=== PATIENT | female | born 1940 | race Caucasian/White ===

== ENCOUNTER → 2024-10-31 | Outpatient (CLI) | payer OTHER ==
[~2024-10-31] MED LIST: BISA5EC PO; EUTHYROX125 MC1 PO; EZETIMIBE10 M6 PO; LISINOPRIL-HCT1 EACH PO; MIRALAX17 GM PO; NARCAN4 M1 INH; OXYC5 PO; Simvastatin80 MG PO
[2024-10-31 13:02] LABS: Creatinine, Urine Random 31.1 mg/dL (27.00-270.00)
[2024-10-31 13:05] LABS: Microalb/Creat Ratio UR, Rand 27.299 mg/g (0.000-30.000); Microalbumin, Random Urine 8.49 mg/L (0.000-20.000)
== END | disposition home or self-care (01) ==
LOC: LAB SHORT 06:15 → LAB 06:15
PROVIDERS: Physician Assistant Medical
DX: N18.32 Chronic kidney disease, stage 3b (principal)
CPT/HCPCS: 82043; 82570

== ENCOUNTER 2024-12-19 22:07 | Emergency (ER) | payer OTHER ==
[~2024-12-19] VITALS: Ht 157.5 cm; Wt 54.4 kg
[2024-12-19 22:13] VITALS: BP 184/57
[2024-12-19] MEDS ORDERED: Methocarbamol 500 MG Tab PO ONE (23:35)
[2024-12-19] MEDS ORDERED: Voltaren100 GM TOP (23:40)
[2024-12-19] MEDS ORDERED: Robaxin750 MG PO (23:40)
== END 2024-12-19 23:53 | disposition home or self-care (01) ==
LOC: ER 22:07
DX: S39.012A Strain of muscle, fascia and tendon of lower back, initial encounter (principal); E78.5 Hyperlipidemia, unspecified; E03.9 Hypothyroidism, unspecified; I10 Essential (primary) hypertension; Z79.890 Hormone replacement therapy; Z79.02 Long term (current) use of antithrombotics/antiplatelets; Z79.899 Other long term (current) drug therapy; W50.1XXA Accidental kick by another person, initial encounter
CPT/HCPCS: 71101; 99283-25; A9270

== ENCOUNTER 2025-09-22 19:38 | Inpatient (IN) | payer OTHER ==
[~2025-09-22] VITALS: Ht 162.6 cm; Wt 50.8 kg
[~2025-09-22 19:38] MED LIST changes: +Robaxin750 MG PO; +Voltaren100 GM TOP
[2025-09-22 20:21] LABS: BASOPHILS ABSOLUTE AUTO 0.08 K/mm3 (0.00-0.23); BASOPHILS PERCENT AUTO 1 % (0-2); EOSINOPHILS ABSOLUTE AUTO 0.12 K/mm3 (0.00-0.68); EOSINOPHILS PERCENT AUTO 2 % (0-6); Hematocrit 36.1 % (33.0-51.0); Hemoglobin 11.8 g/dL (11.5-16.0); IMMATURE GRAN ABSOLUTE AUTO 0.02 K/mm3 (0.00-0.10); IMMATURE GRAN PERCENT AUTO 0 % (0-1); LYMPHOCYTES ABSOLUTE AUTO 1.45 K/mm3 (0.84-5.20); LYMPHOCYTES PERCENT AUTO 22 % (21-46); MONOCYTES ABSOLUTE AUTO 0.43 K/mm3 (0.16-1.47); MONOCYTES PERCENT AUTO 7 % (4-13); Mean Corpuscular HGB Conc 32.7 g/dL (31.5-36.5); Mean Corpuscular Volume 97 fL (80-100); NEUTROPHILS ABSOLUTE AUTO 4.56 K/mm3 (1.96-9.15); NEUTROPHILS PERCENT AUTO 68 % (41-73); NRBC ABSOLUTE 0.00 K/mm3 (0.00-0.02); NRBC Auto 0.0 /100 WBC (0.0-0.2); Platelet Count 243 K/mm3 (150-400); RDW Coefficient Variation 13.4 % (11.7-14.2); RDW Standard Deviation 48.0 fL (35.1-46.3)
[2025-09-22] MEDS ORDERED: CefTRIAXone Sodium 1,000 MG in NS 50 ML IV ONE (20:40)
[2025-09-22 20:46] LABS: pH Blood Venous 7.46 (7.34-7.37)
[2025-09-22 21:25] LABS: Influenza A, PCR NEGATIVE (NEGATIVE); Influenza B, PCR NEGATIVE (NEGATIVE); Resp Syncytial Virus, PCR NEGATIVE (NEGATIVE); SARS-Cov-2 (COVID-19) PCR, MMC NEGATIVE (NEGATIVE)
[2025-09-22 21:41] LABS: Alanine Aminotransfer (ALT/SGP 51.0 U/L (12-78); Albumin, Blood 3.6 g/dL (3.4-5.0); Albumin/Globulin Ratio 1.1 (0.8-1.8); Anion Gap 10.0 mmol/L (3-11); Aspartate Aminotrans (AST/SGOT 82.0 U/L (12-37); Bilirubin, Total 0.6 mg/dL (0.1-1.0); Blood Urea Nitrogen 23.0 mg/dL (8-24); CO2, Blood 23.0 mmol/L (21-32); Calcium, Blood 8.9 mg/dL (8.5-10.1); Chloride, Blood 103.0 mmol/L (98-108); Creatinine, Blood 1.84 mg/dL (0.40-1.00); Globulin, Blood 3.3 g/dL (2.2-4.0); Glucose, Blood 88.0 mg/dL (70-99); Potassium, Blood 4.2 mmol/L (3.5-5.5); Sodium, Blood 132.0 mmol/L (136-145); Total Protein, Blood 6.9 g/dL (6.4-8.2)
[2025-09-22] MEDS ORDERED: FLU VACC TS2025-26(6MOS UP)/PF 45 MCG/0.5 ML SYRINGE IM ONE (22:20)
[2025-09-22 23:15] VITALS: BP 134/76
[2025-09-23] VITALS (7 sets, daily range): BP systolic 100–152; BP diastolic 44–84
[2025-09-23 02:25] LABS: Hematocrit 35.7 % (33.0-51.0); Hemoglobin 11.6 g/dL (11.5-16.0); Mean Corpuscular HGB Conc 32.5 g/dL (31.5-36.5); Mean Corpuscular Volume 98 fL (80-100); NRBC ABSOLUTE 0.00 K/mm3 (0.00-0.02); NRBC Auto 0.0 /100 WBC (0.0-0.2); Platelet Count 255 K/mm3 (150-400); RDW Coefficient Variation 13.3 % (11.7-14.2); RDW Standard Deviation 47.5 fL (35.1-46.3)
[2025-09-23 02:38] LABS: Alanine Aminotransfer (ALT/SGP 48.0 U/L (12-78); Albumin, Blood 3.6 g/dL (3.4-5.0); Albumin/Globulin Ratio 1.2 (0.8-1.8); Anion Gap 10.0 mmol/L (3-11); Aspartate Aminotrans (AST/SGOT 74.0 U/L (12-37); Bilirubin, Total 0.6 mg/dL (0.1-1.0); Blood Urea Nitrogen 23.0 mg/dL (8-24); CO2, Blood 24.0 mmol/L (21-32); Calcium, Blood 8.9 mg/dL (8.5-10.1); Chloride, Blood 103.0 mmol/L (98-108); Creatinine, Blood 1.77 mg/dL (0.40-1.00); Globulin, Blood 3.0 g/dL (2.2-4.0); Glucose, Blood 90.0 mg/dL (70-99); Potassium, Blood 4.0 mmol/L (3.5-5.5); Sodium, Blood 133.0 mmol/L (136-145); Total Protein, Blood 6.6 g/dL (6.4-8.2)
[2025-09-23] MEDS ORDERED: NS 1,000 ML IV SCH (05:05)
--- NOTE | 2025-09-23 06:40 | NUR ---
PT ARRIVED FROM THE ED VIA STRETCHER. DAUGHTER AT BEDSIDE AND PROVIDED HISTORY. PT IS ALERT AND ORIENTED X 2-3. PT IS UNAWARE OF DATE AND CURRENT PRESIDENT, BUT PT IS AWARE OF CURRENT SITUATION, SELF, AND PLACE. PT IS FORGETFUL BUT EASILY REDIRECTABLE. PURWIK IN PLACE. IV FLUIDS INFUSING. IV ANTIBIOTICS GIVEN ORDERED. SPO2>92% ON 2L VIA NC. DAUGHTER STATED SHE WILL BE BACK AT BEDSIDE IN THE MORNING.
[2025-09-23] MEDS ORDERED: Furosemide 10 MG / ML 2ML Vial IV SCH (09:00)
[2025-09-23] MEDS ORDERED: Enoxaparin 30 MG/0.3 ML SYR SC SCH (09:00)
[2025-09-23 12:17] LABS: Thyroid Stimulating Hormone 75.4 uIU/mL (0.360-4.800)
[2025-09-23 14:09] LABS: CHOL/HDL RATIO 5.9; Cholesterol 407 mg/dL (50-200); HDL Cholesterol 69 mg/dL (>39); LDL/HDL RATIO 4.4; Low Density Lipoprotein Chol 306 mg/dL (0-110); Triglycerides 162 mg/dL (30-160); Very Low Density Lipoprot Chol 32 mg/dL (6-32)
[2025-09-23] MEDS ORDERED: Haloperidol Lactate Inj. 5 MG/ML Injection IV PRN (14:15)
[2025-09-23] MEDS ORDERED: LORazepam 2 MG/ML 1ML Injection IV PRN (14:15)
--- NOTE | 2025-09-23 16:13 | NUR ---
PATIENT REFUSING TELE PATIENT AND FAMILY EDUCATED ON THE IMPORTANCE OF KEEPING THE HEART MONITOR ON BUT THE PATIENT STILL REFUSES TO WEAR IT. HOSPITALIST AWARE.
--- NOTE | 2025-09-23 18:04 | NUR ---
SHIFT SUMMARY PATIENT AOX2-3 WITH INTERMITTNET CONFUSION/AGITATION/ANXIETY. SHE DENIES CP OR SOB. HER VITALS ARE STABLE ON RA. HER FAMILY VISITING AND ONCE HER DAUGHTER LEFT PATIENT WAS VERY AGIIATED AND ANXIOUS SHE WOULD NOT COOPERATED AND KEPT TRYING TO GET UP AND WALK OUT. SHE IS CONFUSED AND FALL RISK. HOSPITALIST AWARE AND ORDERED PRN MEDICATIONS PER MAR. SHE ALSO REFUSES TO WEAR THE TELE MONITOR AND ALTHOUGH SHE WAS EDUCATED ON THE IMPORTANCE OF WEARING IT SHE CONTINUES TO REFUSE TO WEAR IT HOSPALIST AWARE. SHE TOLERATES HER MEALS AND TAKES PILLS WHOLE WITH WATER. PATIENT MORE COOPERATIVE WITH FAMILY AT BEDSIDE.
[2025-09-23] MEDS ORDERED: CefTRIAXone Sodium 1,000 MG in NS 100 ML IV SCH (21:00)
[2025-09-24 04:02] VITALS: BP 113/54
[2025-09-24] MEDS ORDERED: FentaNYL Citrate 50 MCG/ML 2 ML Injection IV PRN (04:30)
[2025-09-24 04:41] LABS: BASOPHILS ABSOLUTE AUTO 0.07 K/mm3 (0.00-0.23); BASOPHILS PERCENT AUTO 2 % (0-2); EOSINOPHILS ABSOLUTE AUTO 0.14 K/mm3 (0.00-0.68); EOSINOPHILS PERCENT AUTO 4 % (0-6); Hematocrit 36.4 % (33.0-51.0); Hemoglobin 11.7 g/dL (11.5-16.0); IMMATURE GRAN ABSOLUTE AUTO 0.00 K/mm3 (0.00-0.10); IMMATURE GRAN PERCENT AUTO 0 % (0-1); LYMPHOCYTES ABSOLUTE AUTO 0.87 K/mm3 (0.84-5.20); LYMPHOCYTES PERCENT AUTO 22 % (21-46); MONOCYTES ABSOLUTE AUTO 0.33 K/mm3 (0.16-1.47); MONOCYTES PERCENT AUTO 9 % (4-13); Mean Corpuscular HGB Conc 32.1 g/dL (31.5-36.5); Mean Corpuscular Volume 98 fL (80-100); NEUTROPHILS ABSOLUTE AUTO 2.47 K/mm3 (1.96-9.15); NEUTROPHILS PERCENT AUTO 64 % (41-73); NRBC ABSOLUTE 0.00 K/mm3 (0.00-0.02); NRBC Auto 0.0 /100 WBC (0.0-0.2); Platelet Count 250 K/mm3 (150-400); RDW Coefficient Variation 13.3 % (11.7-14.2); RDW Standard Deviation 48.2 fL (35.1-46.3)
[2025-09-24 04:59] LABS: Anion Gap 8.0 mmol/L (3-11); Blood Urea Nitrogen 25.0 mg/dL (8-24); CO2, Blood 27.0 mmol/L (21-32); Calcium, Blood 8.7 mg/dL (8.5-10.1); Chloride, Blood 103.0 mmol/L (98-108); Creatinine, Blood 1.94 mg/dL (0.40-1.00); Glucose, Blood 86.0 mg/dL (70-99); Potassium, Blood 4.1 mmol/L (3.5-5.5); Sodium, Blood 134.0 mmol/L (136-145)
--- NOTE | 2025-09-24 06:18 | NUR ---
NO ACUTE EVENTS OVERNIGHT. AT THE BEGINNING OF THE SHIFT, THE PT WAS VERY CONFUSED, AGITATED, AND IRRITABLE. PT WAS NONCOMPLIANT WITH CARE. 1:1 SITTER AT BEDSIDE D/T PT'S IMPULSIVE ACTIONS. TOWARDS THE END OF THE SHIFT, PT BECAME MORE COMPLIANT. PT ALLOWED LAB DRAW, TELEMETRY PLACED BACK ON PT, AND PT TOOK MORNING MEDICATION. BED LOCKED IN LOWEST POSITION. BED ALARM ON. CALL LIGHT WITHIN REACH. 1:1 SITTER AT BEDSIDE.
[2025-09-24 08:52] VITALS: BP 118/46
[2025-09-24] MEDS ORDERED: ASPI81CH PO (14:05)
[2025-09-24] MEDS ORDERED: CARV3.125 (14:05)
[2025-09-24] MEDS ORDERED: LOSA25 PO (14:05)
[2025-09-24] MEDS ORDERED: ATOR40TA PO (14:07)
[2025-09-24] MEDS ORDERED: EUTHYROX125 MCG PO (14:07)
[2025-09-24] MEDS ORDERED: QUET25 PO (14:20)
--- NOTE | 2025-09-24 14:23 | NUR ---
SHIFT SUMMARY DISCHARGE PATIENT AOX2 DENIES CP OR SOB, HER VITALS ARE STABLE. SHE IS TOLERATING HER MEALS. SHE IS UNCOOPERATIVE ANXIOUS AND AGITATED PRN MEDS GIVEN PER MAR. SHE IS A FALL RISK AND WILL NOT STAY SEATED SHE REFUSES. SHE WAS ORDERED POSI RESTRAINTS FOR HER SAFETY. SHE JUST SAYS SHE WANTS TO GO HOME. HER DAUGHTER WAS CALLED BY THE HOSPITALIST TO COME PICK THE PATIENT UP FOR DISCHARGE. EDUCATION GIVEN ON DISHARGE INSTRUCTION TO THE PATIENT AND DAUGHTER AT BEDSIDE.
== END 2025-09-24 14:22 | disposition home or self-care (01) | DRG 280 ==
LOC: ER 19:38 → PCU 21:57
PROVIDERS: Emergency Medicine; Internal Medicine; ADMIT Internal Medicine
DX: I13.0 Hypertensive heart and chronic kidney disease with heart failure and stage 1 through stage 4 chronic kidney disease, or unspecified chronic kidney disease (principal); I50.41 Acute combined systolic (congestive) and diastolic (congestive) heart failure; I21.A1 Myocardial infarction type 2; J18.9 Pneumonia, unspecified organism; J96.01 Acute respiratory failure with hypoxia; N17.9 Acute kidney failure, unspecified; E87.1 Hypo-osmolality and hyponatremia; F03.90 Unspecified dementia, unspecified severity, without behavioral disturbance, psychotic disturbance, mood disturbance, and anxiety; N18.30 Chronic kidney disease, stage 3 unspecified; E03.9 Hypothyroidism, unspecified; I08.0 Rheumatic disorders of both mitral and aortic valves; E78.5 Hyperlipidemia, unspecified; Z91.148 Patient's other noncompliance with medication regimen for other reason; F41.9 Anxiety disorder, unspecified; Z79.890 Hormone replacement therapy; Z79.899 Other long term (current) drug therapy; Z87.891 Personal history of nicotine dependence; Z82.49 Family history of ischemic heart disease and other diseases of the circulatory system; Z88.5 Allergy status to narcotic agent; Z28.21 Immunization not carried out because of patient refusal
CPT/HCPCS: 36415; 71046; 80048; 80053; 80061; 82803; 83605; 83690; 83880; 84439; 84443; 84484; 85025; 85027; 87637; 93005; 93010; 93306; 96365; 97165; 99285-25; A9270; J0456; J0696; J1630; J1650; J1938; J7030; J7050